=== PATIENT | female | born 1965 | race Caucasian/White ===

== ENCOUNTER 2017-12-21 18:18 | Emergency (ER) | payer OTHER ==
[~2017-12-21] VITALS: Ht 157.5 cm; Wt 99.8 kg
[2017-12-21 18:22] VITALS: BP 148/95
[2017-12-21] MEDS ORDERED: REMICADE 1100 MG/VIA IM (18:25)
[2017-12-21] MEDS ORDERED: AMBIEN 5 MG TABL5 M1 PO (18:26)
[2017-12-21] MEDS ORDERED: PROTONIX 20 MG20 M1 PO (18:26)
[2017-12-21] MEDS ORDERED: IBUPROFEN 600600 M1 PO (18:26)
[2017-12-21] MEDS ORDERED: ZESTRIL20 MG PO (18:26)
[2017-12-21] MEDS ORDERED: DOXYCYCLINE 10100 M1 PO (18:43)
[2017-12-21] MEDS ORDERED: KEFLEX500 M1 PO (18:44)
[2017-12-21] MEDS ORDERED: ACETAMINOPHEN-1 EAC1 PO (18:48)
== END 2017-12-21 19:00 | disposition home or self-care (01) ==
LOC: M.ERS 18:18
DX: L03.317 Cellulitis of buttock (principal); K50.90 Crohn's disease, unspecified, without complications; Z88.2 Allergy status to sulfonamides

== ENCOUNTER → 2019-03-07 | Outpatient (CLI) | payer OTHER ==
[~2019-03-07] MED LIST: ACETAMINOPHEN-1 EAC1 PO; AMBIEN 10 MG TA10 MG PO; AMITRIPTYLINE H10 M3 PO; BUTRANS1 EACH TRANSDERM; DOXYCYCLINE 10100 M1 PO; IBUPROFEN 600600 M1 PO; KEFLEX500 M1 PO; LISINOPRIL10 MG PO; MEDROLDOSEPACK PO; NEURONTIN 300300 M1 PO; NORCO 10-325 T1 EACH PO; PRILOSEC 20 MG20 MG PO; REMICADE 1100 MG/VIA IM
--- NOTE | ~2019-03-07 | PAINCON ---
[address] [address] PAIN MANAGEMENT CONSULTATION Name: KIKI DUNAWAY Room: [facility] TONIE Baugh#: [id number] Admission: 03/07/19 Attend Phys: Dayna Naidu MD Discharge: Date of : 65 Report #: [id number] THIS REPORT FOR: //name// CC: Donn Naidu DATE OF SERVICE: 03/07/2019 PRIMARY CARE PHYSICIAN: Donn Beckett MD CHIEF COMPLAINT: Left knee pain, left hip pain, left arm pain and history of fibromyalgia. HISTORY: The patient is a 53-year-old female who has been seen in the pain clinic because of chronic pain. She was experiencing pain in her left knee. States that she has gone to physical therapy. She was given a Medrol Dosepak. She is not sure how much benefit she gleaned from that. She has tried amitriptyline. She felt that this medication caused her to have vivid dreams. She notes that she was having some GI discomfort as well. As you recall, she has a history of Crohn's disease. She has had bowel resection in the past. She feels that she had increased GI discomfort. She is not sure whether that was secondary to the Elavil or the gabapentin. She feels that the medications of Elavil and gabapentin together cause some nausea. She is not sure which one or whether it was a combination. She stopped taking them. Notes that her pain is worse with activity, walking, sitting and standing. She states that she has used opioid medications in the past. States that she was on hydrocodone 10/325 one and half tablets b.i.d. She has been diagnosed with arthritis in her left knee. She was also told that she has some arthritis in her back. She has returned to the pain clinic for review of her medications. ALLERGIES: SULFA. CURRENT MEDICATIONS: Remicade 100 mg, Ambien 5 mg at bedtime, lisinopril 20 mg, ibuprofen 600 mg q.i.d., and Protonix 20 mg. PAIN CLINIC/PQRS: 1. The patient states that she has had surgery on her left and right shoulder. The patient is not being treated for osteoarthritis. She is being treated for rheumatoid arthritis. 2. Height 5 feet 4 inches, weight 227 pounds, BMI is 39. 3. VITAL SIGNS: Blood pressure 149/100, heart rate 82, respiratory rate 16, room air saturation 95%, temperature 98. 4. Pain score 4/10. 5. Fall history: The patient fell in November after tripping over a dog. 6. Blood thinner. The patient is not on a blood thinning medication. 7. Hypertension. The patient [place] [address] PAIN MANAGEMENT CONSULTATION Name: KIKI DUNAWAY GINA [facility] [id number] Admission: 03/07/19 Attend Phys: Dayna Naidu MD Discharge: Date of : 65 Report #: [id number] 8. Risk assessment tool, low for opioid use. 9. Functional assessment tool, . 10. Recreational drug use. The patient denies. 11. Tobacco: The patient denies use of tobacco ____. 12. Alcohol: The patient denies frequent use of alcoholic beverages. PHYSICAL EXAMINATION: GENERAL: The patient is a well-developed, well-nourished, somewhat obese white female, appears her stated age. She is alert and oriented x 3. Her affect is appropriate. Speech is fluent. HEENT: Normocephalic, atraumatic. Extraocular eye muscles intact. Sclerae nonicteric. Mucous membranes are moist. The patient has some signs of alopecia in the anterior portion of her hairline. NECK: Without adenopathy or JVD. EXTREMITIES: The patient is able to lift her arms above her shoulders. Has had rotator cuff surgeries. Muscle strength is judged to be 5-/5 for the major muscle groups in the upper extremity. HEART: Regular rate. ABDOMEN: Nontender. Bowel sounds present. The patient without significant scoliosis, kyphosis or lordosis. Complains of pain and discomfort in the lower portion of her back. Complains of pain in the left knee. IMPRESSION: 1. History of left greater trochanteric bursa. 2. Left knee pain status post left knee injection. 3. Fibromyalgia. 4. Bowel resection secondary to Crohn's disease. 5. . 6. Right and left rotator cuff problems. 7. Chronic pain. RECOMMENDATIONS: We discussed treatment options with the patient. At this juncture, we will have her stop taking the amitriptyline. She felt that the amitriptyline caused problematic dreams. We have explained to the patient that we heard this concern from other patient in the past. We have discussed the use of gabapentin. The patient is not sure, but feels that that might be causing her some GI upset. We will have the patient take the gabapentin by itself without use of Elavil ____ whether or not this is the cause of her discomfort. States that she did take Lyrica in the past and this caused some GI problems in the past. The patient has undergone a left knee injection and feels that her pain is improved since the knee injection. We discussed the treatment course for fibromyalgia. We explained that the current treatment as most effective for fibromyalgia has been activity and use of antidepressants. We will consider the use of doxepin. We will see whether or not she has better results with the use [place] [address] PAIN MANAGEMENT CONSULTATION Name: KIKI DUNAWAY Room: [facility] TONIE Baugh#: [id number] Admission: 03/07/19 Attend Phys: Dayna Naidu MD Discharge: Date of : 65 Report #: [id number] dreams. We also explained to the patient that opioid medications are not a good medication for treatment of fibromyalgia. She states that she is having back pain, has arthritic pain in her knees as well as arthritic pain down into her lower back. She states that in the past, she has used hydrocodone 10 mg 1-1/2 tablets p.o. b.i.d. She did note some improvement with the Medrol Dosepak as well. We will try a Butrans patch and note its efficacy. The patient will follow up in the near future. We would like to thank you for letting us participate in her care. We hope she continues to improve. By: [id number]. Robert Naidu MD /PMT
== END ==
LOC: M.PC 05:33
DX: M25.562 Pain in left knee (principal); M25.552 Pain in left hip; M79.602 Pain in left arm; G89.29 Other chronic pain; I10 Essential (primary) hypertension; Z88.2 Allergy status to sulfonamides; Z79.899 Other long term (current) drug therapy

== ENCOUNTER → 2019-04-11 | Outpatient (CLI) | payer OTHER ==
[~2019-04-11] MED LIST changes: +DOXEPIN 10 MG C10 M1 PO; +TRAMADOL 50 MG50 MG PO
--- NOTE | ~2019-04-11 | PAINCON ---
[address] [address] PAIN MANAGEMENT CONSULTATION Name: KIKI DUNAWAY Room: [facility] TONIE Baugh#: [id number] Admission: 04/11/19 Attend Phys: Dayna Naidu MD Discharge: Date of : 65 Report #: [id number] THIS REPORT FOR: //name// CC: Donn Naidu DATE OF SERVICE: 04/11/2019 CHIEF COMPLAINT: Left knee, left hip, arm and neck pain. HISTORY: The patient is a 54-year-old female with a history of chronic pain. She also has a history of fibromyalgia. She has returned to the pain clinic for evaluation. She received a knee injection by Orthopedic physician. She notes that her knee feels much better. Still has pain in the low back area, left hip, arm and neck. Rates these pains as a 6/10. She was provided a script for Butrans patch. States that it was not covered by her insurance. She did try at the 5 mg level, did not notice a significant benefit. She has been using Motrin, uses p.r.n. She has been encouraged to use the least amount of nonsteroidal anti-inflammatory medications. She has a history of Crohn's disease. She has had bowel resection in the past. Notes that her pain increases with walking, sitting, standing and improves with use of her medication as well as rest. She is scheduled to undergo an MRI of her low back next week. ALLERGIES: SULFA. CURRENT MEDICATIONS: Remicade 100 mg, Ambien 5 mg at bedtime, lisinopril 20 mg, ibuprofen 600 mg q.i.d., Protonix 20 mg. PAIN CLINIC ASSESSMENT AND PQRS: 1. The patient states that she has had surgery on her left and right shoulder. She is not being treated for osteoarthritis. Does have some arthritic changes in her knee. She has not been treated for rheumatoid arthritis. 2. Height 5 feet 4 inches, weight 237 pounds, BMI is 40. 3. Vital Signs: Blood pressure 148/96, heart rate 81, respiratory rate 16, room air saturation 95%, temperature is 98.4. 4. Pain intensity 03/11. 5. Fall history. The patient has not fallen in the last 3 months. 6. Blood thinner. The patient is not on any blood thinning medication. 7. Hypertension. The patient is being treated for hypertension. 8. Risk assessment tool, low for opioid use. 9. Functional assessment tool, 44/70. 10. Recreational drugs. The patient denies use of recreational drugs. 11. Tobacco: The patient denies use of tobacco. 12. Alcohol: The patient denies frequent [place] [address] PAIN MANAGEMENT CONSULTATION Name: KIKI DUNAWAY GINA Room: [facility]#: [id number] Admission: 04/11/19 Attend Phys: Dayna Naidu MD Discharge: Date of : 65 Report #: [id number] PHYSICAL EXAMINATION: GENERAL: The patient is a well-developed, well-nourished, obese, white female. Appears her stated age. She is alert and oriented x 3. Her affect is appropriate. HEENT: Normocephalic, atraumatic. Extraocular eye muscles intact. Sclerae nonicteric. Mucous membranes are moist. Has some signs of alopecia in the anterior portion of her scalp, neck without adenopathy or JVD. EXTREMITIES: Upper extremity, the patient is able to lift her arms above her head, shoulders. Had rotator cuff surgeries. Muscle strength is judged to be 5-/5 for the major muscle groups in the upper extremity. HEART: Regular rate. ABDOMEN: Nontender. Bowel sounds present. MUSCULOSKELETAL: The patient is without significant scoliosis, kyphosis or lordosis. Complains of pain in the lower portion of her back. Also, has noted some improvement in her left knee pain after the injection by her Orthopedic doctor. IMPRESSION: 1. History of greater trochanteric bursitis. 2. Left knee pain, status post left knee injection with improvement. 3. Fibromyalgia. 4. Bowel resection secondary to Crohn's disease. 5. section. 6. Right and left rotator cuff problems. 7. Chronic pain. RECOMMENDATIONS: We discussed treatment options with the patient. At this juncture, she will stop her amitriptyline. The patient will try doxepin. Hopefully, she will find this medication is helpful and she will not have the same problems with bad dreams. She will start 10 mg at night as prescribed. She will also try tramadol 50 mg 1 p.o. every 4-6 hours p.r.n. We explained the hesitancy of opioids nursing home. They can in some people become problematic. The patient can develop an addiction as well as pain medicines over a period of time, may become less effective secondary to development of tolerance. The patient has fibromyalgia. Again, we have discussed the benefits of exercise and fibromyalgia. Discussed the benefits of antidepressant medications. The patient will follow up in the near future. We would like to thank you for letting us participate in her care. We hope she continues to improve. By: [id number]. Robert Naidu MD /[facility]
== END ==
LOC: M.PC 05:12
DX: G89.29 Other chronic pain (principal); M79.7 Fibromyalgia; I10 Essential (primary) hypertension; K50.90 Crohn's disease, unspecified, without complications; Z79.899 Other long term (current) drug therapy; Z88.2 Allergy status to sulfonamides; Z87.59 Personal history of other complications of pregnancy, childbirth and the puerperium

== ENCOUNTER → 2019-05-09 | Outpatient (CLI) | payer OTHER ==
[~2019-05-09] MED LIST changes: +HYDROCODON-ACE1 EAC5 PO
--- NOTE | ~2019-05-09 | PAINCON ---
[address] [address] PAIN MANAGEMENT CONSULTATION Name: EMELYNKIKIRaul FUENTES Room: [facility] TONIE Baugh#: [id number] Admission: 05/09/19 Attend Phys: Dayna Naidu MD Discharge: Date of : 65 Report #: [id number] THIS REPORT FOR: //name// CC: Donn Naidu DATE OF SERVICE: 05/09/2019 PRIMARY CARE PHYSICIAN: Donn Beckett MD CHIEF COMPLAINT: Left knee, hip, arm and neck pain. HISTORY: The patient is a 54-year-old female who has been evaluated in the pain clinic. She has a history of chronic pain. Part of the chronic pain involves fibromyalgia. She also has problems with her GI tract. She has Crohn's disease and is unable to take nonsteroidal anti-inflammatory medications. She was provided a Butrans patch. The Ensure would not covered and the $300 cost was above her ability to pay. She was provided tramadol. She tried the tramadol and took one tablet q. 4 hours. She did not find that helpful. Did take 2 tablets q. 4 hours and noted about a 2-3 hour period of improvement. She has also continued to take Tylenol Arthritis. Has used Motrin 800 mg p.r.n., her GI doctor has found upon this use given that she has Crohn's disease. Rates her pain as a 6-10 at this point. The patient was initially being seen by her primary physician who has since retired. Since 2017, the patient has been receiving hydrocodone on a regular basis with no complications. She notes that pain increases with walking, sitting, standing and with activities of daily living. She would like to resume use of the hydrocodone medication given that it has been the most successful in controlling her pain. ALLERGIES: SULFA. CURRENT MEDICATIONS: Remicade 100 mg, Ambien 5 mg at bedtime, lisinopril 20 mg, ibuprofen 600 mg q.i.d. p.r.n., Protonix 20 mg. PAIN CLINIC ASSESSMENT/PQRS: 1. The patient states that she has had surgery on her left as well as her right shoulder. She is not being treated for osteoarthritis. Does have some arthritic changes involving her knee. She has been treated for rheumatoid types of problems, but has not been able to follow up with the housekeeping/laundry supervisor. 2. Height 5 feet 4 inches, weight 234 pounds, BMI is 40.3. 3. VITAL SIGNS: Blood pressure 145/84, heart rate 83, respiratory rate 18, room air saturation 97%, temperature was 98.7. 4. Pain intensity 6/10. 5. Fall history: The patient has not fallen in the last 3 months. 6. Blood thinner. The patient is not on a blood thinning medication. 7. Hypertension. The patient is being [place] [address] PAIN MANAGEMENT CONSULTATION Name: KIKI DUNAWAYETTE [id number] Admission: 05/09/19 Attend Phys: Dayna Naidu MD Discharge: Date of : 65 Report #: [id number] 8. Risk assessment tool, low for opioid use. 9. Functional assessment tool: . 10. Recreational drugs. The patient denies use of recreational drugs. 11. Tobacco: The patient denies use of tobacco. 12. Alcohol: The patient denies frequent use of alcoholic beverages. PHYSICAL EXAMINATION: GENERAL: The patient is a well-developed, well-nourished white female. Slightly obese. She is alert and oriented x 3. Her affect is appropriate. Speech is fluent. HEENT: Normocephalic, atraumatic. Extraocular eye muscles intact. Sclerae nonicteric. Mucous membranes are moist. NECK: Without adenopathy. The patient has some early signs of alopecia in the anterior portion of her forehead. NECK: Without adenopathy or JVD. EXTREMITIES: Upper extremity, the patient is able to lift her hands and arms above her head. She has rotator cuff surgeries. Complains of some decreased strength because of the pain. Rates her pain as a 5/5 for the major muscle groups in the upper extremity. HEART: Regular rate. S1, S2. ABDOMEN: Nontender. Bowel sounds present. MUSCULOSKELETAL: The patient without significant scoliosis, kyphosis or lordosis. The patient complains of pain in the lower portion of her back across the beltline area. Has had some pain in her left knee. Has undergone injections by her orthopedic surgeon in the past. IMPRESSION: 1. History of greater trochanteric bursitis. 2. Left knee pain status post left knee injection with improvement. 3. Fibromyalgia. 4. Bowel resection secondary to Crohn's disease. 5. section. 6. Right and left rotator cuff problems. 7. Chronic pain treated with complex medical management using hydrocodone since 2017. RECOMMENDATIONS: We discussed treatment options with the patient. At this juncture, she feels that the medications have not been as helpful. She has tried the Butrans patch. It was too expensive. It was over $300. She has used the tramadol. She did not find this effective. Taking one p.o. q. 4 hours was not effective, but when she did take 2 pills, she did note some improvement, but for a brief amount of time generally about 2-3 hours of benefit. The patient has been using hydrocodone 10/325 one p.o. q.i.d. since 2016. She feels that this medication was the most effective. At this juncture, she cannot take nonsteroidals and has been requested not to take nonsteroidals by her GI doctor given that she has Crohn's disease. [place] [address] PAIN MANAGEMENT CONSULTATION Name: KIKI DUNAWAY GINA Room: [facility]#: [id number] Admission: 05/09/19 Attend Phys: Dayna Naidu MD Discharge: Date of : 65 Report #: [id number] hydrocodone. She will take 10 mg 1 p.o. t.i.d. The patient will take the medication as prescribed. She will get old records from her primary. We have explained to the patient that opioid medications are not good for pain control and the patient with fibromyalgia. We will have her try doxepin 10 mg 1 p.o. at bedtime. Hopefully, this will help with the pain, as well as help with some of the pains associated with fibromyalgia. The patient is aware that opioid medications can be problematic one. Some patients can become addicted to them. We have also discussed the problems with opioids and that tolerance may develop. The patient has been given a script for hydrocodone 10/325 one p.o. t.i.d. as well as doxepin 10 mg 1 p.o. at bedtime. She did try Elavil to help with the pain, but noted vivid and disconcerting dreams. By: [id number]. Robert Naidu MD /PMT
== END ==
LOC: M.PC 05:14
DX: M70.60 Trochanteric bursitis, unspecified hip (principal); M25.562 Pain in left knee; G89.29 Other chronic pain; M54.2 Cervicalgia; M79.7 Fibromyalgia; K50.90 Crohn's disease, unspecified, without complications; Z88.2 Allergy status to sulfonamides; Z79.899 Other long term (current) drug therapy

== ENCOUNTER → 2019-06-06 | Outpatient (CLI) | payer OTHER ==
--- NOTE | 2019-06-10 11:25 | PAINCON ---
[address] [address] PAIN MANAGEMENT CONSULTATION Name: KKII DUNAWAY Room: [facility] TONIE Baugh#: [id number] Admission: 06/06/19 Attend Phys: Dayna Naidu MD Discharge: Date of : 65 Report #: [id number] THIS REPORT FOR: //name// CC: Donn Naidu DATE OF SERVICE: 06/06/2019 CHIEF COMPLAINT: Here for medication renewal. HISTORY: The patient is a 54-year-old female who has been seen in the pain clinic because of chronic pain involving her knees, hips, arms and neck. The patient has history of chronic pain and also has afflicted with fibromyalgia. Has problems with her GI tract. She has Crohn's disease and is unable to take nonsteroidal anti-inflammatory medications. She has tried a Butrans patch script. She was unable to get it because the insurance did not cover it and it costs $300. It is above her ability to pay. She has tried tramadol. She finds that this is somewhat helpful. She has used Motrin p.r.n. She has noted some increased GI problems and has decreased this medication. Doxepin was prescribed at the last visit. She has been unable to get this medication at this point. Hopefully, she will find it is helpful with her pain as well as facilitate sleep. Notes that her pain is worse with walking, sitting, standing and other activities. She was provided hydrocodone 10 mg 1 p.o. t.i.d. at the last visit. She finds that that has helped with the pain and enables her to become more productive with less pain and discomfort. She rates her pain as 3-4 at this point. She also has bilateral knee pain. She is scheduled to undergo injections into her knees with the hopes that this will help with the pain. ALLERGIES: SULFA. CURRENT MEDICATIONS: Remicade 100 mg, Ambien 5 mg at bedtime, lisinopril 20 mg, ibuprofen 600 mg q.i.d. p.r.n., Protonix 20 mg. PAIN CLINIC ASSESSMENT AND PQRS: 1. The patient states that she has had surgery on her left as well as her right shoulder. She is not being treated for osteoarthritis. She has some arthritic changes involving her knees. She is not being treated for rheumatoid by office correspondent. 2. Height 5 feet 4 inches, weight 241 pounds, BMI is 41.4. 3. Vital signs: Blood pressure 146/98, heart rate 82, respiratory rate 18, room air saturation 94%, temperature 98.5. 4. Pain intensity 4/5. 5. Fall history: The patient has not fallen since we saw her last. 6. Blood thinner. The patient is not on a blood [place] [address] PAIN MANAGEMENT CONSULTATION Name: KIKI DUNAWAY Room: [facility]#: [id number] Admission: 06/06/19 Attend Phys: Dayna Naidu MD Discharge: Date of : 65 Report #: [id number] 7. Hypertension. The patient is being treated for hypertension. 8. Opioids, low risk. 9. Functional assessment tool, . 10. Recreational drug use. The patient denies use of recreational drugs. 11. Tobacco: The patient denies use of tobacco. 12. Alcohol. The patient denies frequent use of alcoholic beverages. PHYSICAL EXAMINATION: GENERAL: The patient is a well-developed, well-nourished white female who is slightly obese. She is alert and oriented x 3. Her affect is appropriate. Speech is fluent. HEENT: Normocephalic, atraumatic. Extraocular eye muscles intact. Sclerae nonicteric. Mucous membranes are moist. The patient has some evidence of alopecia in the anterior portion of her forehead. NECK: Without adenopathy or JVD. EXTREMITIES: Upper extremity muscle strength judged to be 5-/5 for the major muscle groups in the upper extremity. The patient is able to lift her hands over her head. Has had rotator cuff surgeries. Complains of some decreased strength. Strength above the major muscle groups in the lower extremities judged to be 5/5. HEART: Regular rate. S1, S2. ABDOMEN: Nontender. Bowel sounds present. MUSCULOSKELETAL: The patient without significant scoliosis, kyphosis or lordosis. The patient complains of some pain in her lower back and across the lower belt area. Has pain in her knees. IMPRESSION: 1. History of greater trochanteric bursitis. 2. Left knee pain status post left knee injections with improvement. 3. Fibromyalgia. 4. Bowel resection secondary to Crohn's disease. 5. section. 6. Right and left rotator cuff problems. 7. Chronic pain treated with complex medical management using opioid medications. Has used this medication since 2017 without problem. RECOMMENDATIONS: We discussed treatment options with the patient. At this juncture, we will continue with her medications. A script for her medications have been provided. The patient will continue with hydrocodone 10/325 one p.o. t.i.d. The patient will also continue with doxepin 10 mg 1 p.o. at bedtime. She will use nonsteroidal anti-inflammatory medications sparingly. [address] [address] PAIN MANAGEMENT CONSULTATION Name: KIKI DUNAWAY Room: [facility]#: [id number] Admission: 06/06/19 Attend Phys: Dayna Naidu MD Discharge: Date of : 65 Report #: [id number] We would like to thank you for letting us participate in her care. We hope she continues to improve. <ELECTRONICALLY SIGNED> By: Dayna Naidu MD 06/10/19 1125 [id number]. Robert Naidu MD /[facility]
== END ==
LOC: M.PC 05:13
DX: M25.562 Pain in left knee (principal); M79.7 Fibromyalgia; K50.90 Crohn's disease, unspecified, without complications; M25.511 Pain in right shoulder; M25.512 Pain in left shoulder; Z79.891 Long term (current) use of opiate analgesic; Z98.890 Other specified postprocedural states; M70.60 Trochanteric bursitis, unspecified hip; Y93.89 Activity, other specified

== ENCOUNTER → 2019-07-04 | Outpatient (CLI) | payer OTHER ==
[~2019-07-04] MED LIST changes: +AMBIEN 5 MG TABL5 M1 PO
--- NOTE | 2019-07-24 09:09 | PAINCON ---
[address] [address] PAIN MANAGEMENT CONSULTATION Name: KIKI DUNAWAY Room: [facility] Lupis#: [id number] Admission: 07/04/19 Attend Phys: Dayna Naidu MD Discharge: Date of : 65 Report #: [id number] THIS REPORT FOR: //name// CC: Donn Naidu DATE OF SERVICE: 07/04/2019 PRIMARY CARE PHYSICIAN: Donn Beckett MD CHIEF COMPLAINT: Here for medication renewal. HISTORY: The patient is a 54-year-old female who has been followed in the pain clinic. As you may recall, she has a history of chronic pain involving her knees, hips, arms and neck. She does have Crohn's disease. She is unable to take nonsteroidal anti-inflammatory medications. She has tried Butrans patches. This was prohibitively expensive. She has used hydrocodone in the past and found it beneficial and would like to continue that medication. She was tried on amitriptyline to help with the pain. She felt that this caused significant problems with bad dreams. She was provided doxepin 10 mg. She noticed that the medication made her feel fuzzy. She also has used tramadol and found that beneficial. ALLERGIES: SULFA. CURRENT MEDICATIONS: Remicade 100 mg, Ambien 5 mg at bedtime, lisinopril 20 mg, ibuprofen 600 mg p.r.n., Protonix 20 mg. PAIN CLINIC ASSESSMENT/PQRS: 1. The patient has had surgery on her left as well as the right shoulder. She is not being treated for osteoarthritis. She has some arthritic changes involving her knees. She is not being treated for rheumatoid arthritis. 2. Height 5 feet 4 inches, weight 241 pounds, BMI is 41. 3. Vital signs: Blood pressure 144/79, heart rate 85, respiratory rate 16, room air saturation is 95%, temperature 97.9. 4. Pain intensity 12/09. 5. Fall history: The patient has not fallen in the last 3 months. 6. Blood thinner. The patient is not on a blood thinning medication. 7. Hypertension. The patient is being treated for hypertension. 8. Opioids, low risk. 9. Functional assessment tool, . 10. Recreational drug use. The patient denies. 11. Tobacco: The patient denies use of tobacco. 12. Alcohol. The patient denies frequent use of alcoholic beverages. PHYSICAL EXAMINATION: [place] [address] PAIN MANAGEMENT CONSULTATION Name: KIKI DUNAWAY Room: [facility]#: [id number] Admission: 07/04/19 Attend Phys: Dayna Naidu MD Discharge: Date of : 65 Report #: [id number] GENERAL: The patient is a well-developed, well-nourished white female. She is obese. She is alert and oriented x 3. Her affect is appropriate. Speech is fluent. HEENT: Normocephalic, atraumatic. Extraocular eye muscles intact. Sclerae nonicteric. Mucous membranes are moist. The patient has some evidence of alopecia in the anterior portion of her forehead. NECK: Without adenopathy or JVD. EXTREMITIES: Upper extremity muscle strength judged to be 5/5 for the major muscle groups in the upper extremity. The patient has some pain and discomfort in the rotator cuff areas. Decreased strength in these areas. Decreased range of motion. Overall, muscle strength judged to be 5-/5. HEART: Regular rate. S1, S2. ABDOMEN: Nontender. Bowel sounds present. MUSCULOSKELETAL: Without significant scoliosis, kyphosis or lordosis. The patient has pain in the lower portion of her back and in the low back area. Has pain in her knees. IMPRESSION: 1. History of greater trochanteric bursitis. 2. Left knee pain status post left knee injections with improvement in the past. 3. Fibromyalgia. 4. Bowel resection secondary to Crohn's disease. 5. section. 6. Right and left rotator cuff problems. 7. Pain secondary to complex situation. We will continue to use the opioid medications at this juncture. The patient has used opioid medications since 2017 without problem. RECOMMENDATIONS: We discussed treatment options with the patient. Risks and benefits of opioid therapy were again reviewed. They include the possibility of less effectiveness secondary to development of tolerance. The patient is also aware that patients can develop addiction. The patient has not shown any addictive behavior. She is aware that there is a limitation as to how much pain relief these medications can provide. She feels that they have been beneficial in the past. They enable her to engage in life of less pain and chronic discomfort. Notes that her pain is worse with the walking and standing. Does use heat and massage. A script for her medications of tramadol 50 mg 1 p.o. t.i.d. and hydrocodone 10/325 one p.o. t.i.d. [place] [address] PAIN MANAGEMENT CONSULTATION Name: KIKI DUNAWAY Room: [facility]#: [id number] Admission: 07/04/19 Attend Phys: Dayna Naidu MD Discharge: Date of : 65 Report #: [id number] We would like to thank you for letting us participate in her care. We hope she continues to improve. <ELECTRONICALLY SIGNED> By: Dayna Naidu MD 07/24/19 0909 [id number] Naidu MD /[facility]
== END ==
LOC: M.PC 05:31
DX: G89.29 Other chronic pain (principal); M25.562 Pain in left knee; M79.7 Fibromyalgia; M70.60 Trochanteric bursitis, unspecified hip; Y93.89 Activity, other specified; Z98.890 Other specified postprocedural states; Z79.891 Long term (current) use of opiate analgesic; M75.102 Unspecified rotator cuff tear or rupture of left shoulder, not specified as traumatic; M75.101 Unspecified rotator cuff tear or rupture of right shoulder, not specified as traumatic; K50.90 Crohn's disease, unspecified, without complications

== ENCOUNTER → 2019-08-01 | Outpatient (CLI) | payer OTHER ==
[~2019-08-01] MED LIST changes: -AMBIEN 5 MG TABL5 M1 PO
--- NOTE | 2019-08-12 13:25 | PAINCON ---
[address] [address] PAIN MANAGEMENT CONSULTATION Name: KIKI DUNAWAY Room: [facility]USTY Lupis#: [id number] Admission: 08/01/19 Attend Phys: Dayna Naidu MD Discharge: Date of : 65 Report #: [id number] THIS REPORT FOR: //name// CC: Donn Naidu DATE OF SERVICE: 08/01/2019 CHIEF COMPLAINT: Here for medication. HISTORY: The patient is a 54-year-old female. She suffers from chronic pain. She has Crohn's disease. She is unable to take nonsteroidal anti-inflammatory medication because of her Crohn's disease. She has tried a Butrans patch. Because of the [place], she was unable to afford it. Hydrocodone has been helpful in the past. She finds that this medication is working reasonably well. She feels that the medication has been working reasonably well. She has returned today and would like to have her medications renewed. ALLERGIES: SULFA. CURRENT MEDICATIONS: Remicade 100 mg, Ambien 5 mg at bedtime, lisinopril 20 mg, ibuprofen 600 mg p.r.n., Protonix 20 mg. PAIN CLINIC ASSESSMENT AND PQRS: 1. The patient has had surgery on her left as well as her right shoulder. She is not being treated for osteoarthritis. She has some arthritic changes involving her knees. She is being treated for rheumatoid arthritis. 2. Height 5 feet 4 inches, weight 241 pounds, BMI is 41, temperature 97.8. 3. Pain intensity 4/10. 4. Fall history: The patient has not fallen in the last 3 months. 5. Blood thinner: The patient is not on a blood thinning medication. 6. Hypertension: The patient is being treated for hypertension. 7. Opioids: Low risk. 8. Functional assessment tool: reviewed. 10. Recreational drugs: The patient denies use of recreational drugs. 11. Tobacco: The patient denies use of tobacco. 12. Alcohol: The patient denies frequent use of alcoholic beverages. PHYSICAL EXAMINATION: GENERAL: The patient is a well-developed, well-nourished, obese white female. She is alert and oriented x 3. Her affect is appropriate. Speech is fluent. HEENT: Normocephalic, atraumatic. Extraocular eye muscles intact. Sclerae nonicteric. Mucous membranes are moist. NECK: Without adenopathy or JVD. The patient does have some evidence of alopecia in [place] [address] PAIN MANAGEMENT CONSULTATION Name: KIKI DUNAWAY GINA Room: [facility]#: [id number] Admission: 08/01/19 Attend Phys: Dayna Naidu MD Discharge: Date of : 65 Report #: [id number] NECK: Without adenopathy or JVD. EXTREMITIES: Upper extremity muscle strength judged to be 5/5 for the major muscle groups of the upper extremity. The patient has some pain and discomfort in the rotator cuff areas. Decreased muscle strength in these areas. Muscle strength 5-/5 for the major muscle groups. HEART: Regular rate. S1, S2. ABDOMEN: Nontender. Bowel sounds present. MUSCULOSKELETAL: Without significant scoliosis, kyphosis or lordosis. The patient has pain in the lower portion of her back and pain in the knees. IMPRESSION: 1. History of greater trochanteric bursitis. 2. Left knee pain status post left knee injections with improvement in the past. 3. Fibromyalgia. 4. Bowel resection secondary to Crohn's disease. 5. section. 6. Right and left rotator cuff problems. 7. Pain secondary to complex medications using opioids to help control the pain secondary to the patient's inability to take nonsteroidals. RECOMMENDATIONS: We discussed treatment options with the patient. I explained to the patient that opioid medications can be problematic for some patients. She feels the medications are helpful. She has taken the medication as prescribed. She is not exhibiting any addictive behavior. Limitations of these medications again have been reviewed. The patient is keeping her medications in a guarded area. She would like to proceed with renewal of her medications. She will also continue with heat and massage. A script for the tramadol medication 50 mg 1 p.o. t.i.d. and hydrocodone 10/325 has been renewed. She will call us if she has any concerns. We would like to thank you for letting us participate in her care. We hope she continues to improve. <ELECTRONICALLY SIGNED> By: Dayna Naidu MD 08/12/19 1325 [id number]. Robert Naidu MD /mykel
== END ==
LOC: M.PC 04:59
DX: M25.562 Pain in left knee (principal); M79.7 Fibromyalgia; M25.511 Pain in right shoulder; M25.512 Pain in left shoulder; K50.90 Crohn's disease, unspecified, without complications; M70.60 Trochanteric bursitis, unspecified hip; Z98.890 Other specified postprocedural states; Z79.891 Long term (current) use of opiate analgesic

== ENCOUNTER → 2019-08-22 | Outpatient (CLI) | payer OTHER ==
[~2019-08-22] MED LIST changes: +AMBIEN 5 MG TABL5 M1 PO
--- NOTE | 2019-09-03 09:09 | PAINCON ---
[address] [address] PAIN MANAGEMENT CONSULTATION Name: KIKI DUNAWAY Room: [facility] Hany.#: [id number] Admission: 08/22/19 Attend Phys: Dayna Naidu MD Discharge: Date of : 65 Report #: [id number] THIS REPORT FOR: //name// CC: Donn Naidu DATE OF SERVICE: 08/22/2019 CHIEF COMPLAINT: Chronic pain. History of Crohn's disease. HISTORY OF PRESENT ILLNESS: The patient is a 54-year-old female who has been followed in the pain clinic because of chronic pain associated with her knees as well as low back. She has noticed an increase in her knee pain. She is scheduled to have an injection in a week. She has returned today for renewal of her medications. Rates her pain as a 5/10. Sometimes wakes up with significant pain in the morning. Feels that the tramadol and [place] were helpful. Notes that walking, sitting, standing can be worse for her pain. Feels her medications, heat, massage and rest are beneficial. She has returned today with the hopes of renewing her medications. ALLERGIES: SULFA. CURRENT MEDICATIONS: Remicade 100 mg, Ambien 5 mg at bedtime, lisinopril 20 mg, ibuprofen 600 mg p.r.n., Protonix 20 mg. PAIN CLINIC ASSESSMENT AND PQRS: 1. The patient has had surgery on her left as well as her right shoulder. She is not being treated for osteoarthritis. Does have some arthritic changes in her knees. She is being treated for rheumatoid arthritis. 2. Height 5 feet 4 inches, weight 236 pounds, BMI is 40.6. 3. Vital signs: Blood pressure 155/71, heart rate 78, respiratory rate 18, room air saturation 94%, temperature 98.1. 4. Pain intensity 5/10. 5. Fall history: The patient has not fallen in the last 3 months. 6. Blood thinner. The patient is not on a blood thinning medication. 7. Hypertension. The patient is being treated for hypertension. 8. Opioids, low risk. 9. Functional assessment tool reviewed. 10. Recreational drug use: The patient denies. 11. Tobacco: The patient denies. 12. Alcohol: The patient denies frequent use of alcoholic beverages. PHYSICAL EXAMINATION: GENERAL: The patient is a well-developed, well-nourished, somewhat obese white female, appeared to be of her stated age. She is alert and oriented x 3. [place] [address] PAIN MANAGEMENT CONSULTATION Name: EMELYNKIKIRaul FUENTES Room: [facility]#: [id number] Admission: 08/22/19 Attend Phys: Dayna Naidu MD Discharge: Date of : 65 Report #: [id number] affect is appropriate. Speech is fluent. HEENT: Normocephalic, atraumatic. Extraocular eye muscles intact. Sclerae nonicteric. Mucous membranes are moist. The patient with some evidence of alopecia in her forehead area. NECK: Without adenopathy or JVD. EXTREMITIES: Upper extremity muscle strength judged to be 5-/5 for the major muscle groups in the upper extremity. The patient has some pain and discomfort in the rotator cuff areas. Has decreased muscle strength in the lower extremities, 5-/5 for the major muscle groups. HEART: Regular rate. S1, S2. ABDOMEN: Nontender. Bowel sounds present. MUSCULOSKELETAL: The patient without significant scoliosis, kyphosis or lordosis. The patient does have some pain in the lower portion of her back as well as pain down in her knees. IMPRESSION: 1. History of greater trochanter bursitis. 2. Left knee pain status post left knee injection with improvement in the past. 3. Fibromyalgia. 4. Bowel resection secondary to Crohn's disease. 5. section. 6. Right and left rotator cuff problems. 7. Pain secondary to complex medical pain treated with complex medications using opioids to help control the pain. The patient has difficulty with nonsteroidal anti-inflammatory medications because of her Crohn's disease. The patient will continue with her medications. RECOMMENDATIONS: A script for her medications of tramadol 50 mg one p.o. q. 4-6 hours p.r.n. and [place] 10/325 has been rewritten. The patient will call us if she has any concerns. We would like to thank you for letting us participate in her care. A script for her medications has all been rewritten. <ELECTRONICALLY SIGNED> By: Dayna Naidu MD 09/03/19 0909 [id number] 2206N. Robert Naidu MD /mykel
== END ==
LOC: M.PC 05:08
DX: Z76.0 Encounter for issue of repeat prescription (principal); I10 Essential (primary) hypertension; M70.62 Trochanteric bursitis, left hip; Z79.899 Other long term (current) drug therapy; Z88.2 Allergy status to sulfonamides; Z79.891 Long term (current) use of opiate analgesic

== ENCOUNTER → 2019-09-23 | Outpatient (CLI) | payer OTHER | LOC: M.MRI 15:50 | DX: S82.832A Other fracture of upper and lower end of left fibula, initial encounter for closed fracture (principal); S83.412A Sprain of medial collateral ligament of left knee, initial encounter; X58.XXXA Exposure to other specified factors, initial encounter; Y93.89 Activity, other specified; Y92.89 Other specified places as the place of occurrence of the external cause; Y99.8 Other external cause status ==

== ENCOUNTER → 2019-10-17 | Outpatient (CLI) | payer OTHER ==
--- NOTE | ~2019-10-17 | PAINCON ---
[address] [address] PAIN MANAGEMENT CONSULTATION Name: KIKI DUNAWAY Room: [facility]#: [id number] Admission: 10/17/19 Attend Phys: Dayna Naidu MD Discharge: Date of : 65 Report #: [id number] THIS REPORT FOR: //name// CC: MD Dayna Urena DATE OF SERVICE: 10/17/2019 CHIEF COMPLAINT: Chronic pain with Crohn's disease. HISTORY OF PRESENT ILLNESS: The patient is a 54-year-old female who has been followed in the pain clinic. As you may recall, she suffers from chronic pain associated with her back as well as knee pain. She also has bilateral axwu-kq-bneb pain involving her knees. She rates her pain today as a 5/10. She did slip and fell down some steps. She fractured the fibular head. At this juncture, nose surgery is needed. She has noted some increased pain. She is being followed by an orthopedic surgeon. Notes that her pain is worse in the cold weather. The weather has changed. Notes that activities such as walking, sitting and standing can exacerbate her pain. She has used medications, heat, massage and warmth and noticed that these can be help in decreasing the discomfort. Rates her pain as 50-60% improved with her current medical regimen. ALLERGIES: SULFA. CURRENT MEDICATIONS: Remicade 100 mg, Ambien 5 mg at bedtime, lisinopril 20 mg, ibuprofen 600 mg p.r.n., Protonix 20 mg, tramadol 50 mg, [place] 10/325 one p.o. q.4-6 hours for pain. PAIN CLINIC ASSESSMENT AND PQRS: 1. The patient has had surgery on her left shoulder and right shoulder. She is not being treated for osteoarthritis. She does have some arthritic changes in her knees. She is being treated for rheumatoid arthritis. 2. Height 5 feet 4 inches, weight 236 pounds, BMI is 40.5. 3. Vital signs: Blood pressure 143/91, heart rate 69, respiratory rate 16, room air saturation 97%, temperature 97.8. 4. Pain intensity: 5/10. 5. Fall history: The patient has fallen and fractured the head of her fibula. 6. Blood thinner: The patient is not on a blood thinning medication. 7. Hypertension: The patient is being treated for hypertension. 8. Opioids, low risk. 9. Functional assessment tool. This has been low for use of opioids. 10. Recreational drug use: The patient denies. 11. Tobacco: The patient denies. 12. Alcohol: The patient denies use of alcoholic [place] [address] PAIN MANAGEMENT CONSULTATION Name: EMELYNKIKI Raul Room: [facility]#: [id number] Admission: 10/17/19 Attend Phys: Dayna Naidu MD Discharge: Date of : 65 Report #: [id number] PHYSICAL EXAMINATION: GENERAL: The patient is a well-developed, well-nourished white female. She is obese. She appears her stated age. She is alert and oriented x 3. Her affect is appropriate. Speech is fluent. HEENT: Normocephalic, atraumatic. Extraocular eye muscles intact. Sclerae nonicteric. Mucous membranes are moist. The patient with some evidence of alopecia in her forehead area. NECK: Without adenopathy or JVD. EXTREMITIES: Upper extremity muscle strength judged to be 5/5 for the major muscle groups in the upper extremity. The patient has some pain and discomfort in the area of the rotator cuff. Note some decreased muscle strength. Lower extremity muscle strength judged to be 5/5 for the major muscle groups in the lower extremity. HEART: Regular rate. S1, S2. ABDOMEN: Nontender. Bowel sounds present. MUSCULOSKELETAL: Without significant scoliosis, kyphosis or lordosis. The patient does have some pain in the lower portion of her back as well as down into her knees. IMPRESSION: 1. History of greater trochanter bursitis. 2. Left knee pain status post left knee injection with improvement in the past. 3. Fibromyalgia. 4. Bowel resection secondary to Crohn's disease. 5. section. 6. Right and left rotator cuff problems. 7. Pain secondary to complex medical regimen treated pain with use of complex medical management to help control the pain using opioids. The patient is unable to take nonsteroidal anti-inflammatory medications because of her Crohn's. RECOMMENDATIONS: We discussed treatment options with the patient. At this juncture, we will continue with use of tramadol one p.o. q.4-6 hours p.r.n. The patient will also continue with Narcan 10 mg one p.o. q.4-6 hours p.r.n. The patient recently fell. She is having increased pain in her leg because of fracture of the fibula head. She is scheduled to follow up with a surgeon in the near future. Hopefully, this heals well and there is no problem. Hopefully, her medications continue to be ample to cover the pain and discomfort she is experiencing. She finds that her pain is about 50-60% improved with use of her medications. She is aware that opioid medications can become less effective as time goes on because of development of tolerance. She will also call the pain clinic should she notice any complications. A script for her medication renewal has been provided. She will continue with hydrocodone 10/325 one p.o. t.i.d. A script for Ambien 5 mg to help with sleep at night has been provided. She will call us if she has any [place] [address] PAIN MANAGEMENT CONSULTATION Name: KIKI DUNAWAY Raul Room: [facility]#: [id number] Admission: 10/17/19 Attend Phys: Dayna Naidu MD Discharge: Date of : 65 Report #: [id number] We would like to thank you for letting us participate in her care. We hope she continues to improve. By: [id number]. Robert Naidu MD /mykel
== END ==
LOC: M.PC 09:30
DX: M25.562 Pain in left knee (principal); M79.7 Fibromyalgia; M70.60 Trochanteric bursitis, unspecified hip

== ENCOUNTER → 2019-11-14 | Outpatient (CLI) | payer OTHER ==
--- NOTE | 2019-11-27 09:12 | PAINCON ---
[address] [address] PAIN MANAGEMENT CONSULTATION Name: KIKI DUNAWAY Raul Room: [facility]#: [id number] Admission: 11/14/19 Attend Phys: Dayna Naidu MD Discharge: Date of : 65 Report #: [id number] THIS REPORT FOR: //name// cc: ISIAH BOUCHER MD, CHADWICK MD ~ THIS REPORT FOR: //name// CC: ISIAH Naidu DATE OF SERVICE: 11/14/2019 CHIEF COMPLAINT: Chronic pain and Crohn's disease. HISTORY OF PRESENT ILLNESS: The patient is a 54-year-old female who has been followed in the pain clinic. As you may recall, she suffers from chronic pain associated with her back and knee pain. She also has ueoo-kg-hbbs involvement in her knees. She slipped and fell. She fractured her fibular head. She rates her pain as 4/10 at this point. States that her fibular head is healing slowly. She has noticed some increased pain in her left leg. She did undergo an x-ray last week. Pain is worse at night. Rates her pain overall as a 4/10. Walking, sitting, standing and other activities can exacerbate the pain and discomfort. She would like to continue with her medications. ALLERGIES: SULFA. CURRENT MEDICATIONS: Remicade 100 mg, Ambien 5 mg at bedtime, lisinopril 20 mg, ibuprofen 600 mg, Protonix 20 mg, tramadol 50 mg and [place] 10/325 one p.o. q. 4-6 hours p.r.n. PAIN CLINIC ASSESSMENT/PQRS: 1. The patient has had surgery on her left shoulder and right shoulder. She is not being treated for osteoarthritis. She has a healing fibular head, which was fractured. She does have some arthritic changes in her knees. She is being treated for rheumatoid arthritis. 2. Height 5 feet 4 inches, weight 236 pounds, BMI is 40. 3. Vital Signs: Blood pressure 154/98, heart rate 77, respiratory rate 16, room air saturation 93% and temperature 98.1. 4. Pain intensity 10. 5. Fall history: The patient did fall and fractured the fibular head. 6. Blood thinner. The patient is not on a blood-thinning medication. 7. Hypertension. The patient is being treated for hypertension. 8. Opioids, low risk. 9. Functional assessment tool has been reviewed. 10. Recreational drug use: [place] [address] PAIN MANAGEMENT CONSULTATION Name: KIKI DUNAWAY Room: [facility]#: [id number] Admission: 11/14/19 Attend Phys: Dayna Naidu MD Discharge: Date of : 65 Report #: [id number] 11. Tobacco: The patient denies. 12. Alcohol. The patient denies frequent use of alcoholic beverages. PHYSICAL EXAMINATION: GENERAL: The patient is a well-developed, well-nourished white female. She is obese. Appears her stated age. She is alert and oriented x 3. Her affect is appropriate. Speech is fluent. HEENT: Normocephalic, atraumatic. Extraocular eye muscles intact. Sclerae nonicteric. Mucous membranes are moist. The patient has alopecia in the forehead area. NECK: Without adenopathy or JVD. EXTREMITIES: Upper extremity muscle strength is judged to be 5/5 for the major muscle groups in the upper extremity. The patient does have some discomfort in the area of the rotator cuff. Decreased muscle strength in this area. Lower extremity muscle is strength judged to be 5/5 for the major muscle groups in the lower extremity. HEART: Regular rate. S1, S2. ABDOMEN: Nontender. Bowel sounds present. MUSCULOSKELETAL: The patient without significant scoliosis, kyphosis or lordosis. The patient has some pain in her knees, which is wiuc-hn-hftx. Has pain in the left leg. IMPRESSION: 1. History of greater trochanteric bursitis. 2. Left knee pain status post left knee injection and improvement in the past. 3. Fibromyalgia. 4. Fracture of the fibular head, which is healing. 5. History of bowel resection secondary to Crohn's disease. 6. section. 7. Right and left rotator cuff problems. 8. Pain secondary to chronic medical management of her pain with opioids. The patient is unable to take nonsteroidal anti-inflammatory medications because of her Crohn's. RECOMMENDATIONS: We discussed treatment options with the patient. At this juncture, we will continue with her medications. Risks and benefits of opioid use were discussed. The patient is aware that some patients have become addicted to opioids. She feels her medications are helpful. Enable her to engage in activities, she would not be able to without their use. A script for her medications of tramadol 50 mg q.4 hours has been written. The patient will also continue with Ambien 5 mg at bedtime. A script for her hydrocodone 10/325 one p.o. t.i.d. has been written. We would like to thank you for letting us participate in her care. The patient feels that her pain medications continued to be helpful. She gains greater than 50% improvement with their use. Keeps her medications [place] [address] PAIN MANAGEMENT CONSULTATION Name: EMELYNKIKI A Room: [facility]#: [id number] Admission: 11/14/19 Attend Phys: Dayna Naidu MD Discharge: Date of : 65 Report #: [id number] We would like to thank you for letting us participate in her care. We hope she continues to improve. <ELECTRONICALLY SIGNED> By: Dayna Naidu MD 11/27/19 0912 [id number]. Robert Naidu MD /nt
== END ==
LOC: M.PC 02:13
DX: S82.499A Other fracture of shaft of unspecified fibula, initial encounter for closed fracture (principal); G89.29 Other chronic pain; M25.562 Pain in left knee; M79.7 Fibromyalgia; Z88.2 Allergy status to sulfonamides; Z79.899 Other long term (current) drug therapy; X58.XXXA Exposure to other specified factors, initial encounter; Y93.89 Activity, other specified; Y92.89 Other specified places as the place of occurrence of the external cause; Y99.8 Other external cause status

== ENCOUNTER → 2019-12-12 | Outpatient (CLI) | payer OTHER ==
--- NOTE | ~2019-12-12 | PAINCON ---
[address] [address] PAIN MANAGEMENT CONSULTATION Name: KIKI DUNAWAY Room: [facility]#: [id number] Admission: 12/12/19 Attend Phys: Dayna Naidu MD Discharge: Date of : 65 Report #: [id number] THIS REPORT FOR: //name// cc: JAME BOUCHER MD, CHADWICK MD ~ THIS REPORT FOR: //name// CC: JAME Naidu DATE OF SERVICE: 12/12/2019 The patient was seen on 12/12/2019 by Robert Naidu MD PRIMARY PHYSICIAN: Jame Boucher MD CHIEF COMPLAINT: Medications are working reasonably well and I would like to continue. HISTORY: The patient is a 54-year-old female who has been followed in the Pain Clinic because of chronic pain associated with her back and myzb-we-auwy involvement in her knee. She fractured fibular head. That seems to be healing reasonably well. She rates her pain today as a 3/10. Notes pain down in the right leg and some pain in the joints. She has had some fever and chills after watching over a grandchild. She feels that she had contacted and gotten over the flu. It lasted about 2-1/2 to 3 weeks. Notes that activities such as walking, sitting and standing can worsen her pain. She has used her medications to help with the pain. Heat, rest and massage have been beneficial as well. She rates her pain as a 3/10. ALLERGIES: SULFA. CURRENT MEDICATIONS: Remicade 100 mg, Ambien 5 mg at bedtime, lisinopril 20 mg, ibuprofen 600 mg, Protonix 20 mg, tramadol 50 mg, [place] 10/325 one p.o. q.4-6 hours. PAIN CLINIC ASSESSMENT AND PQRS: 1. The patient has had surgery on her left shoulder and the right shoulder. She is not being treated for osteoarthritis. The patient is healing from a fibular head fracture. She is being treated for rheumatoid arthritis. 2. Height 5 feet 4 inches, weight 232 pounds, BMI is 39. 3. Vital signs: Blood pressure 156/103, heart rate 79, respiratory rate 16, room air saturation 94%, temperature 98.1. 4. Pain score 3/10. 5. Fall history: The patient has not fallen [place] [address] PAIN MANAGEMENT CONSULTATION Name: KIKI DUNAWAY Room: [facility]#: [id number] Admission: 12/12/19 Attend Phys: Dayna Naidu MD Discharge: Date of : 65 Report #: [id number] 6. Blood thinner. The patient is not on a blood thinning medication. 7. Hypertension. The patient is being treated for hypertension. 8. Opioid risks low. 9. Functional assessment tool has been reviewed. 10. Recreational drug use: The patient denies. 11. Tobacco: The patient denies. 12. Alcohol. The patient denies frequent use of alcoholic beverages. PHYSICAL EXAMINATION: GENERAL: The patient is a well-developed, well-nourished white female. Appears her stated age. She is somewhat obese. She is alert and oriented x 3. Her affect is appropriate. Speech is fluent. HEENT: Normocephalic, atraumatic. Extraocular eye muscles intact. Sclerae nonicteric. The patient is showing signs of alopecia on the forehead area. NECK: Without adenopathy or JVD. EXTREMITIES: Upper extremity muscle strength is judged to be 5/5 for the major muscle groups in the upper extremity. The patient does have some discomfort in the area of her rotator cuff. Has some decreased range of motion in this area. Lower extremity muscle strength judged to be 5-/5 for the major muscle groups in the lower extremity. HEART: Regular rate. ABDOMEN: Nontender. Bowel sounds present. MUSCULOSKELETAL: The patient without significant scoliosis, kyphosis or lordosis. The patient has some pain in her knees secondary to yurf-ew-ksss discomfort. This is the left knee that is most problematic. IMPRESSION: 1. History of greater trochanteric bursitis. 2. Left knee pain status post left knee injection with some improvement in the past. 3. Fibromyalgia. 4. Fracture of the fibular head, healing. 5. History of bowel resection secondary to Crohn's disease. 6. Right and left rotator cuff pain. 7. Pain secondary to the above items with a complex medical regimen using opioids. The patient is unable to take nonsteroidal anti-inflammatory medications given her Crohn's disease. RECOMMENDATIONS: We discussed treatment options with the patient. Risks and benefits of opioid use were discussed. The patient is unable to take nonsteroidal anti-inflammatory medications because of her bowel problems. She is aware that opioid medications can be helpful. They can become less effective as time goes on secondary to development of tolerance. We explained to the patient that the medications are provided with the hopes that they will be able to help temporize her pain. She does have wujm-bq-artb pain in her knee. She is aware that some patients may become addicted to these medications. She has [facility] [address] [place] [address] PAIN MANAGEMENT CONSULTATION Name: KIKI DUNAWAY Room: [facility]#: [id number] Admission: 12/12/19 Attend Phys: Dayna Naidu MD Discharge: Date of : 65 Report #: [id number] not shown any signs of addiction. She would like to continue with her medications given that they are providing benefit and enabling her to engage in activities of daily living with less discomfort. A script for her medications has been rewritten. She will continue with tramadol 50 mg one p.o. q.4-6 hours and hydrocodone 10/325 one p.o. q.4-6 hours, total of 90 tablets have been provided. She will also continue with Ambien 5 mg at bedtime. A script for tramadol 90 tablets has been provided. We would like to thank you for letting us participate in her care. We hope she continues to improve. By: [id number]. Robert Naidu MD /nt
== END ==
LOC: M.PC 06:00
DX: S82.4 Fracture of shaft of fibula (principal); X58.XXXD Exposure to other specified factors, subsequent encounter; M25.562 Pain in left knee

== ENCOUNTER → 2020-01-09 | Outpatient (CLI) | payer OTHER ==
--- NOTE | ~2020-01-09 | PAINCON ---
[address] [address] PAIN MANAGEMENT CONSULTATION Name: EMELYNKIKI Raul Room: [facility]#: [id number] Admission: 01/09/20 Attend Phys: Dayna Naidu MD Discharge: Date of : 65 Report #: [id number] THIS REPORT FOR: //name// cc: ISIAH BOUCHER MD, CHADWICK MD ~ THIS REPORT FOR: //name// CC: ISIAH Naidu DATE OF SERVICE: 01/09/2020 CHIEF COMPLAINT: Bilateral knee pain and low back pain. HISTORY: The patient is a 54-year-old female who has been followed in the Pain Clinic because of chronic pain. She suffers from ohum-qj-shkc pain in her knee. She is experiencing some pain in her low back area as well. She has had an injection in the past. She feels that her medications continue to be helpful. She feels that she is working more. Has worked in her backyard. She did break her patella some time ago. She has noted some increased discomfort in that area as well. Rates her pain overall as a 4/10. Rates her pain as about 50% improved with her current medications. Factors that worsen her pain are walking, sitting, standing, lifting and bending. She would like to have her medications renewed. ALLERGIES: SULFA. CURRENT MEDICATIONS: Remicade 100 mg, Ambien 5 mg at bedtime, lisinopril 20 mg, ibuprofen 600 mg, Protonix 20 mg, tramadol 50 mg, and [place] 10/325 one p.o. every 4-6 hours p.r.n. PAIN CLINIC ASSESSMENT AND PQRS: 1. The patient does have a surgery on her right and left shoulders. She is not being treated for osteoarthritis. She does have a healing fibular head fracture. 2. Height 5 feet 4 inches, weight 230 pounds, BMI is 39.8. 3. Vital signs: Blood pressure 171/103, heart rate 82, respiratory rate 16, room air saturation is 94, and temperature 96.7. 4. Pain intensity /10. 5. Fall history: The patient has not fallen in the last 3 months. 6. Blood thinner. The patient is not on a blood thinning medication. 7. Hypertension. The patient is being treated for hypertension. 8. Opioids, low risk. 9. Recreational drug use. The patient receives medication from the Pain Clinic. 10. Tobacco: The patient denies [place] [address] PAIN MANAGEMENT CONSULTATION Name: KIKI DUNAWAY Raul Room: [facility]#: [id number] Admission: 01/09/20 Attend Phys: Dayna Naidu MD Discharge: Date of : 65 Report #: [id number] 11. Alcohol: The patient denies frequent use of alcoholic beverages. PHYSICAL EXAMINATION: GENERAL: The patient is a well-developed, well-nourished, somewhat obese white female, appears her stated age. She is alert and oriented x 3. Her affect is appropriate. Speech is fluent. HEENT: Normocephalic, atraumatic. Extraocular eye muscles intact. NECK: Without adenopathy or JVD. EXTREMITIES: Upper extremity muscle strength judged to be 5-/5 for the major muscle groups in the upper extremity. The patient does have some discomfort in the area of her rotator cuffs. She notes some decreased range of motion in her upper extremities. Lower extremity muscle strength judged to be 5-/5 for the major muscle groups in the lower extremity. The patient has some pain and discomfort in the left knee with complaint of zjhj-tf-drpf discomfort. MUSCULOSKELETAL: The patient without significant scoliosis, kyphosis or lordosis. The patient has pain in the left knee, which is the most problematic area. IMPRESSION: 1. History of greater trochanteric bursitis. 2. Left knee pain status post left knee injection with some improvement. 3. Fibromyalgia. 4. Fracture of the fibular head, continues to heal. 5. History of bowel resection secondary to Crohn's disease. 6. Right and left rotator cuff repairs or pain. 7. Pain secondary to left and right shoulder area as well as the knee, treated with a complex medical management using opioids. The patient is unable to take nonsteroidal anti-inflammatory medications given that she has Crohn's disease. RECOMMENDATIONS: We discussed treatment options with the patient. At this juncture, we will continue with her medications. She is aware that opioid medications can become less effective as time goes on because of development of tolerance. She is not showing signs of addiction. She is unable to take nonsteroidal anti-inflammatory medications because of her Crohn's disease. A script for her medications have been provided. She will continue with tramadol 50 mg one p.o. every 4-6 hours p.r.n. The patient will also continue with hydrocodone 10/325 one p.o. t.i.d. A script for her medications have been provided. We will talk with her in the future. By: [id number]. Robert Naidu MD /nt
== END ==
LOC: M.PC 04:59
DX: S82.4 Fracture of shaft of fibula (principal); M54.5 Low back pain; F11.20 Opioid dependence, uncomplicated; M79.7 Fibromyalgia; Z87.39 Personal history of other diseases of the musculoskeletal system and connective tissue; Z87.19 Personal history of other diseases of the digestive system; Z87.81 Personal history of (healed) traumatic fracture; Z88.2 Allergy status to sulfonamides; Z79.899 Other long term (current) drug therapy; X58.XXXD Exposure to other specified factors, subsequent encounter

== ENCOUNTER → 2020-02-06 | Outpatient (CLI) | payer OTHER ==
--- NOTE | 2020-02-18 08:21 | PAINCON ---
[address] [address] PAIN MANAGEMENT CONSULTATION Name: KIKI DUNAWAY Room: [facility]#: [id number] Admission: 02/06/20 Attend Phys: Dayna Naidu MD Discharge: Date of : 65 Report #: [id number] THIS REPORT FOR: //name// cc: Donn Beckett MD, Alan J. MD ~ THIS REPORT FOR: //name// CC: Donn Naidu DATE OF SERVICE: 02/06/2020 CHIEF COMPLAINT: Continued pain from iweg-nx-rmva pain in my knees. HISTORY: The patient is a 54-year-old female. She is followed in the pain clinic. As you may recall, she suffers from bopk-tl-esti pain in her knees. She has continued to have pain, which is problematic. At this juncture, she is trying to hold out as long as possible before knee replacement. She has returned today for renewal of her medications. She rates her pain as 5/10. She also has some pain in the low back area. She has had knee injections in the past. She is looking forward to undergoing additional injections in the future. She would like to have her medications renewed. She feels that the hydrocodone as well as tramadol do provide some benefit. Walking, sitting, standing, climbing stairs, bending and lifting can be problematic. ALLERGIES: SULFA. CURRENT MEDICATIONS: Remicade 100 mg, Ambien 5 mg at bedtime, lisinopril 20 mg, ibuprofen 600 mg, Protonix 20 mg, tramadol 50 mg, [place] 10/325 one p.o. q. 4-6 hours p.r.n. PAIN CLINIC ASSESSMENT AND PQRS: 1. The patient does have some discomfort and has had surgery on her right and left shoulders. She is not being treated for rheumatoid arthritis. Does have a healing fibular head fracture. 2. Height 5 feet 4 inches, weight 233 pounds, BMI is 40.0. 3. Vital Signs: Blood pressure 141/111. Second Blood pressure 126/86, heart rate 84, respiratory rate 16, room air saturation is 96%, temperature 97.4. 4. Pain intensity 5/10. 5. Fall history: The patient has not fallen in the last 3 months. 6. Blood thinner. The patient is not on a blood thinning medication. 7. Hypertension. The patient is being treated for hypertension. 8. Opioids, low for opioid use. 9. Recreational drug use. The patient denies. 10. Tobacco: The patient [place] [address] PAIN MANAGEMENT CONSULTATION Name: KIKI DUNAWAY Room: [facility]#: [id number] Admission: 02/06/20 Attend Phys: Dayna Naidu MD Discharge: Date of : 65 Report #: [id number] 11. Alcohol. The patient denies frequent use of alcoholic beverages. PHYSICAL EXAMINATION: GENERAL: The patient is alert and oriented x 3. Her affect is appropriate. Speech is fluent. HEENT: Normocephalic, atraumatic. Extraocular eye muscles intact. Sclerae nonicteric. Mucous membranes are moist. The patient has some evidence of alopecia in the forehead area. NECK: Without adenopathy or JVD. EXTREMITIES: Upper extremity muscle strength judged to be 5-/5 for the major muscle groups in the upper extremity. The patient has some pain and discomfort in the rotator cuff areas. Has pain and discomfort in the lower extremities and in the knees bilaterally. ABDOMEN: Protuberant. Bowel sounds present. MUSCULOSKELETAL: The patient without significant scoliosis, kyphosis or lordosis. Has pain in the knees bilaterally secondary to vsyp-ir-cxrx discomfort. IMPRESSION: 1. Rkri-it-rxvj pain. 2. History of greater trochanteric bursitis. 3. Fibromyalgia. 4. Fracture of the fibular head, which is healing. 5. History of bowel resection secondary to Crohn's disease. 6. Right and left rotator cuff pain. 7. Pain secondary to the above been treated with complex medication regimen, using opioids. The patient is unable to take nonsteroidal anti-inflammatory medications because of her Crohn's. RECOMMENDATIONS: We discussed treatment options with the patient. Risks and benefits of the procedure were discussed. The risk and benefits of opioid use have been discussed. They include but are not limited to, worsening of pain because of development of tolerance. The patient is not showing a signs of addiction. She has taken her medication as prescribed. She keeps her medication in a guarded area. She does suffer from hifz-ra-enla pain. Her physicians feels that she should wait until later in life to undergo knee replacements. She feels that the medication is helpful. Still has pain and discomfort. Rates it as a 5/10 today. We will continue with her medications. A script for tramadol 50 mg one p.o. q. 4-6 hours has been provided. The patient will also continue with hydrocodone 10/325 one p.o. q. 4-6 hours. The patient will call us if she has any problems. She will continue with Ambien 5 mg at bedtime. The patient will also continue with tramadol p.r.n. to help with pain control. [facility] [address] [place] [address] PAIN MANAGEMENT CONSULTATION Name: KIKI DUNAWAY Room: [facility]#: [id number] Admission: 02/06/20 Attend Phys: Dayna Naidu MD Discharge: Date of : 65 Report #: [id number] We would like to thank you for letting us participate in her care. We hope she continues to improve. <ELECTRONICALLY SIGNED> By: Dayna Naidu MD 02/18/20 0821 [id number]. Robert Naidu MD /PMT
== END ==
LOC: M.PC 01:50
DX: M25.561 Pain in right knee (principal); M25.562 Pain in left knee; M79.7 Fibromyalgia; Z87.39 Personal history of other diseases of the musculoskeletal system and connective tissue; M75.101 Unspecified rotator cuff tear or rupture of right shoulder, not specified as traumatic; M75.102 Unspecified rotator cuff tear or rupture of left shoulder, not specified as traumatic; G89.4 Chronic pain syndrome; F11.20 Opioid dependence, uncomplicated; S82.4 Fracture of shaft of fibula; X58.XXXD Exposure to other specified factors, subsequent encounter; Z79.899 Other long term (current) drug therapy

== ENCOUNTER → 2020-03-05 | Outpatient (CLI) | payer OTHER ==
--- NOTE | ~2020-03-05 | PAINCON ---
[address] [address] PAIN MANAGEMENT CONSULTATION Name: EMELYNKIKI A Room: [facility]#: [id number] Admission: 03/05/20 Attend Phys: Dayna Naidu MD Discharge: Date of : 65 Report #: [id number] THIS REPORT FOR: //name// cc: Donn Beckett MD, Alan J. MD ~ THIS REPORT FOR: //name// CC: Donn Naidu DATE OF SERVICE: 03/05/2020 PRIMARY CARE PHYSICIAN: Donn Beckett MD CHIEF COMPLAINT: Continued fqzb-ix-bkpm pain in the knees. HISTORY: The patient is a 55-year-old female who has been followed in the pain clinic because of chronic pain. She suffers from oinu-qb-asgj pain involving her knee. She continues to find that her pain is problematic. Use of opioid medications have been helpful. She has returned today for renew of her medication. She has not had any problems with the medication. She is able to think clearly. She also has some low back pain as well as pain in her neck and shoulders. Things have not changed significantly since the last visit. She is working a little more. Rates her pain as a 4/10. Pain is exacerbated with walking, sitting, standing, climbing stairs, and other activities of daily living. She does use heat to help with the pain. ALLERGIES: SULFA. CURRENT MEDICATIONS: Remicade 100 mg, Ambien 5 mg at bedtime, lisinopril 20 mg, ibuprofen 600 mg, Protonix 20 mg, tramadol 50 mg, [place] 10/325 one p.o. q 4-6 hours p.r.n. PAIN CLINIC ASSESSMENT AND PQRS: 1. The patient does have some discomfort and has had surgery on her right and left shoulders. She is not being treated for rheumatoid arthritis. She does have djmj-wp-erho pain involving her knees. She does have a healing fibular head fracture. 2. Height 5 feet 4 inches, weight 233 pounds, BMI is 40. 3. Vital signs: Blood pressure 164/88, heart rate 71, respiratory rate 16, room air saturation 97%. 4. Pain intensity is 4/10. 5. Fall history: The patient has not fallen in the last 3 months. 6. Blood thinner. The patient is not on a blood thinning medication. 7. Hypertension. The patient is being [place] [address] PAIN MANAGEMENT CONSULTATION Name: KIKI DUNAWAY Raul Room: [facility]#: [id number] Admission: 03/05/20 Attend Phys: Dayna Naidu MD Discharge: Date of : 65 Report #: [id number] 8. Opioid use for greater than 6 weeks. 9. Recreational drug use. The patient denies. 10. Tobacco: The patient denies. 11. Alcohol. The patient denies frequent use of alcoholic beverages. PHYSICAL EXAMINATION: GENERAL: The patient is a well-developed, well-nourished, somewhat obese white female, appears her stated age. She is alert and oriented x 3. Her affect is appropriate. Speech is fluent. HEENT: Normocephalic, atraumatic. Extraocular eye muscles intact. Sclerae nonicteric. The patient has some evidence of alopecia in the forehead area. MUSCULOSKELETAL: Upper extremity muscle strength judged to be 5-/5 for the major muscle groups in the upper extremity. The patient has pain and discomfort in the rotator cuff areas. Notes pain and discomfort in the lower extremities and in the knees bilaterally because of jmcm-md-aglm. ABDOMEN: Protuberant. Bowel sounds present. MUSCULOSKELETAL: The patient without significant scoliosis, kyphosis or lordosis. The patient has pain in her knees. IMPRESSION: 1. Loux-ep-nitr pain in the knees bilaterally. 2. History of greater trochanteric bursitis. 3. Fibromyalgia. 4. Fracture of the fibular head, which is healing. 5. History of bowel resection secondary to Crohn's disease. 6. Right and left rotator cuff pain. 7. Pain secondary to chronic pain treated with opioids given that the patient is not able to take nonsteroidal anti-inflammatory medications because of her Crohn's disease. RECOMMENDATIONS: We discussed treatment options with the patient. We will continue with her medications. The risks and benefits of use of opioids have been discussed. The patient is aware that these medications can be problematic in certain people. She has taken the medication as prescribed. She is not showing signs of addiction. She is aware that tolerance may develop. She keeps her medications in a guarded area. Does have mgqk-wr-dtvv pain and pain involving her knees and is unable to take nonsteroidal anti-inflammatory medications because of her Crohn's disease. A script for her medications have been rewritten. She will continue with hydrocodone 10 mg 1 p.o. t.i.d. She will also use tramadol q. 4 hours p.r.n. for chronic pain. The patient takes Ambien 30 mg at bedtime. [place] [address] [place] [address] PAIN MANAGEMENT CONSULTATION Name: KIKI DUNAWAY Room: [facility]#: [id number] Admission: 03/05/20 Attend Phys: Dayna Naidu MD Discharge: Date of : 65 Report #: [id number] We would like to thank you for letting us participate in her care. We hope she continues to improve. By: [id number]. Robert Naidu MD /PMT
== END ==
LOC: M.PC 03:57
PROVIDERS: ATTEND Anesthesiology Pain Medicine
DX: S82.409D Unspecified fracture of shaft of unspecified fibula, subsequent encounter for closed fracture with routine healing (principal); M25.561 Pain in right knee; M25.562 Pain in left knee; M79.7 Fibromyalgia; K50.00 Crohn's disease of small intestine without complications; M75.101 Unspecified rotator cuff tear or rupture of right shoulder, not specified as traumatic; M75.102 Unspecified rotator cuff tear or rupture of left shoulder, not specified as traumatic; I10 Essential (primary) hypertension; Z88.2 Allergy status to sulfonamides; Z90.49 Acquired absence of other specified parts of digestive tract; Z79.899 Other long term (current) drug therapy; X58.XXXD Exposure to other specified factors, subsequent encounter

== ENCOUNTER → 2020-04-30 | Outpatient (CLI) | payer OTHER ==
--- NOTE | 2020-05-07 23:57 | PAINCON ---
[address] [address] PAIN MANAGEMENT CONSULTATION Name: EMELYNKIKI A Room: [facility]#: [id number] Admission: 04/30/20 Attend Phys: Dayna Naidu MD Discharge: Date of : 65 Report #: [id number] THIS REPORT FOR: //name// cc: Donn Beckett MD, Alan J. MD ~ THIS REPORT FOR: //name// CC: Donn Naidu DATE OF SERVICE: 04/30/2020 CHIEF COMPLAINT: Bilateral knee pain with low back, neck and shoulder pain as well. HISTORY: The patient is a 55-year-old female who has been followed in the pain clinic because of chronic pain. She suffers from wduu-lz-fnot pain on her knees. She continues to find that her medications of hydrocodone are helpful. She uses tramadol. It can be beneficial as well. She has returned today for renewal of her medications. She notes that activities are problematic. Walking, sitting, standing, climbing stairs can be problematic. She notes a sharp, shooting, aching, throbbing discomfort. She does have Crohn's disease, which also increases her pain and discomfort. She rates it as a 4/10 at this juncture. ALLERGIES: SULFA. CURRENT MEDICATIONS: Remicade 100 mg, Ambien 5 mg at bedtime, lisinopril 20 mg, ibuprofen 600 mg, Protonix 20 mg, tramadol 50 mg, and [place] 10/325 one p.o. q. 4-6 hours p.r.n. PAIN CLINIC ASSESSMENT AND PQRS: 1. The patient does have some discomfort in her shoulder and in her knees. She is not being treated for rheumatoid arthritis. The patient has zkrm-ir-efsa involvement in her knees. She does have a healing fibular head fracture. 2. Height 5 feet 4 inches, weight 234 pounds, BMI is 40. 3. Vital Signs: Blood pressure 158/100, heart rate 79, respiratory rate 15, room air saturation 92%, temperature 98.3. 4. Pain score 4/10. 5. Fall history: The patient has not fallen in the last 3 months. 6. Blood thinner. The patient is not on a blood thinning medication. 7. Hypertension. The patient is being treated for hypertension. 8. Opioid use for greater than 6 weeks. The patient receives medication from the pain clinic. 9. Recreational [place] [address] PAIN MANAGEMENT CONSULTATION Name: KIKI DUNAWAY Raul Room: [facility]#: [id number] Admission: 04/30/20 Attend Phys: Dayna Naidu MD Discharge: Date of : 65 Report #: [id number] 10. Tobacco: The patient denies. 11. Alcohol. The patient denies frequent use of alcoholic beverages. PHYSICAL EXAMINATION: GENERAL: The patient is a well-developed, well-nourished white female. She is obese. She appears her stated age. She is alert and oriented x 3. Her affect is appropriate. Speech is fluent. HEENT: Normocephalic, atraumatic. Extraocular eye muscles intact. Sclerae nonicteric. Mucous membranes are moist. The patient has some alopecia in the frontal area. MUSCULOSKELETAL: Upper extremity muscle strength judged to be 5-/5 for the major muscle groups in the upper extremity. The patient has pain and discomfort in the area of the rotator cuff. She has pain in the low back and lower extremities. The knees are yvai-ek-epaj. The patient without significant scoliosis, kyphosis or lordosis. The patient does have some pain in her knees. ABDOMEN: Protuberant. Bowel sounds present. IMPRESSION: 1. Ifwr-uw-mmcm pain in the knees bilaterally. 2. History of greater trochanter bursitis. 3. Fibromyalgia. 4. Fracture of the fibular head, which is healing. 5. History of Crohn's disease with history of bowel resection. 6. Right and left rotator cuff pain. 7. Pain secondary to chronic pain treated with opioids. The patient is unable to take nonsteroidal anti-inflammatory medications because of her Crohn's disease. RECOMMENDATIONS: We discussed treatment options with the patient. Risks and benefits of the medications have been discussed. The patient is aware that opioid medications can become less effective as time goes on because of development of tolerance. She would like to continue with the medication, it enables her to engage in activities, she would not be able to without its use. She is also requesting continue use of Zofran to help with sleep at night. A script for the Ambien 5 mg 1 p.o. at bedtime as well as hydrocodone 5/325 one p.o. b.i.d. have been provided. We would like to thank you for letting us participate in her care. We hope she continues to improve. <ELECTRONICALLY SIGNED> By: Dayna Naidu MD 05/07/20 [id number] [id number] [id number]. Robert Naidu MD /nt
== END ==
LOC: M.PC 03:56
PROVIDERS: ATTEND Anesthesiology Pain Medicine
DX: S82.409D Unspecified fracture of shaft of unspecified fibula, subsequent encounter for closed fracture with routine healing (principal); M25.561 Pain in right knee; M25.562 Pain in left knee; M54.5 Low back pain; M54.2 Cervicalgia; M79.18 Myalgia, other site; M25.511 Pain in right shoulder; M25.512 Pain in left shoulder; G89.29 Other chronic pain; Z87.39 Personal history of other diseases of the musculoskeletal system and connective tissue; Z88.2 Allergy status to sulfonamides; Z79.899 Other long term (current) drug therapy; X58.XXXD Exposure to other specified factors, subsequent encounter

== ENCOUNTER 2020-05-30 11:50 | Inpatient (IN) | payer OTHER ==
[~2020-05-30] VITALS: Ht 162.6 cm; Wt 118.8 kg
[2020-05-30 12:02] VITALS: BP 162/94
[2020-05-30] MEDS ORDERED: NORCO 10-325 T1 EAC1 PO (12:05)
[2020-05-30 12:33] LABS: ABSOLUTE BASOPHILS 0.1 thou/uL (0.0-0.2); ABSOLUTE EOSINOPHILS 0.1 thou/uL (0.0-0.7); ABSOLUTE LYMPHOCYTES 1.4 thou/uL (0.8-5.3); ABSOLUTE MONOCYTES 1.9 thou/uL (0.0-1.2); ABSOLUTE NEUTROPHILS 16.3 thou/uL (1.6-8.1); BASOPHILS 0.3 %; EOSINOPHILS 0.3 %; HEMATOCRIT 38.1 % (37.0-47.0); HEMOGLOBIN 12.3 gm/dL (12.0-15.0); MCH 25.7 pg (26.0-34.0); MCHC 32.2 g/dL (28.0-37.0); MCV 79.9 fL (80.0-100.0); MONOCYTES 9.5 %; MPV 8.4 fl. (7.2-11.1); NUCLEATED RBCS 0 /100WBC; PLATELET COUNT* 251 thou/uL (150-400); POLYS 82.9 %; RBC 4.78 mil/uL (4.20-5.00); RDW-CV 18.3 % (10.5-14.5); WBC 19.7 thou/uL (4.0-11.0)
[2020-05-30 12:36] LABS: CALCIUM 9.4 mg/dL (8.5-10.1); POTASSIUM 3.7 mmol/L (3.5-5.1)
[2020-05-30 12:41] LABS: ALBUMIN 3.3 g/dL (3.4-5.0); TOTAL BILIRUBIN 1.4 mg/dL (<0.1-1.0)
[2020-05-30 12:58] LABS: URINE BILIRUBIN NEGATIVE (Negative); URINE BLOOD 2+ (Negative); URINE CLARITY CLEAR; URINE COLOR YELLOW; URINE GLUCOSE-RANDOM NEGATIVE (Negative); URINE KETONES TRACE (Negative); URINE NITRITE-REFLEX NEGATIVE (Negative); URINE PROTEIN TRACE (Negative); URINE SPECIFIC GRAVITY <= 1.005 (1.005-1.030); URINE UROBILINOGEN 0.2 E.U./dl (0.2-1.0)
[2020-05-30 12:59] LABS: URINE LEUKOCYTES-REFLEX 2+ (Negative)
[2020-05-30 13:02] LABS: SQUAMOUS 0-3 Few /LPF (0-3); URINE WBC-REFLEX >25 Many /HPF (0-5); WBC CLUMPS Few (None Seen)
[2020-05-30 13:04] LABS: CASTS None Seen /LPF (None Seen); MUCUS None Seen strn/LPF (None Seen); URINE RBC 0-2 Rare /HPF (0-2)
[2020-05-30 13:05] LABS: CRYSTALS None Seen /LPF (None Seen)
[2020-05-30 15:40] VITALS: BP 119/65
[2020-05-30 17:50] VITALS: BP 141/62
[2020-05-30 20:00] VITALS: BP 136/60
[2020-05-31] VITALS (34 sets, daily range): BP systolic 84–133; BP diastolic 42–82
[2020-05-31 00:55] LABS: BE -0.7 mmol/L (-2 to +3); PCO2 49.5 mmHg (35.0-45.0); PO2 92.7 mmHg (75.0-100.0); pH 7.333 (7.340-7.450)
[2020-05-31 01:22] LABS: HEMATOCRIT 33.8 % (37.0-47.0); HEMOGLOBIN 10.7 gm/dL (12.0-15.0); MCH 25.5 pg (26.0-34.0); MCHC 31.7 g/dL (28.0-37.0); MCV 80.5 fL (80.0-100.0); MPV 8.6 fl. (7.2-11.1); NUCLEATED RBCS 0 /100WBC; PLATELET COUNT* 245 thou/uL (150-400); RDW-CV 18.2 % (10.5-14.5); WBC 16.3 thou/uL (4.0-11.0)
[2020-05-31 01:25] LABS: CALCIUM 8.2 mg/dL (8.5-10.1); CREATININE 1.3 mg/dL (0.6-1.3); POTASSIUM 3.7 mmol/L (3.5-5.1)
[2020-05-31 01:40] LABS: ALBUMIN 2.7 g/dL (3.4-5.0); TOTAL BILIRUBIN 0.8 mg/dL (<0.1-1.0)
[2020-05-31 03:20] LABS: ABSOLUTE LYMPHOCYTES 0.7 thou/uL (0.8-5.3); ABSOLUTE MONOCYTES 0.2 thou/uL (0.0-1.2); ABSOLUTE NEUTROPHILS 15.5 thou/uL (1.6-8.1); PLATELET ESTIMATE ADEQUATE
[2020-05-31 03:21] LABS: ANISOCYTOSIS 1+; CLUMPED PLTS OCCASIONAL
[2020-06-01] VITALS: BP 101/77
[2020-06-01 04:02] VITALS: BP 166/70
[2020-06-01 07:30] VITALS: BP 122/66
--- NOTE | 2020-06-01 09:54 | EKG ---
[place] [address] ELECTROCARDIOGRAM REPORT Name: KIKI DUNAWAY Room: [address] ADM IN M.R.#: [id number] Admission: 05/30/20 Attend Phys: Huey Odom, Discharge: Date of : 65 Date of Service: 05/31/20 0033 Report #: [id number] THIS REPORT FOR: //name// [facility] Test Date: 2020-05-31 Test Time: 00:33:56 Pat Name: KIKI DUNAWAY Department: Room: [address] Gender: F Housekeeping Director: J[place] : 1965 Requested By: Huey Odom Order Number: [id number] Naty MD: Shashi Souza Measurements Intervals [place] Rate: 136 P: 9 [place]: 143 QRS: -52 QRSD: 81 T: -5 QT: 282 QTc: 425 Interpretive Statements Sinus tachycardia Inferior infarct, old Anterior infarct, old No previous ECG available for comparison Electronically Signed On 06-01-2020 9:54:32 CDT by Shashi Souza [email or web address] <ELECTRONICALLY SIGNED> By: Shashi Souza MD, [facility] 06/01/20 0954 0033 0033 Shashi Souza MD, [facility] /EPI
[2020-06-01 10:06] LABS: ABSOLUTE BASOPHILS 0.1 thou/uL (0.0-0.2); ABSOLUTE LYMPHOCYTES 1.2 thou/uL (0.8-5.3); ABSOLUTE MONOCYTES 0.6 thou/uL (0.0-1.2); ABSOLUTE NEUTROPHILS 7.1 thou/uL (1.6-8.1); BASOPHILS 0.6 %; HEMATOCRIT 31.9 % (37.0-47.0); HEMOGLOBIN 10.1 gm/dL (12.0-15.0); LYMPHOCYTES 13.1 %; MCH 25.6 pg (26.0-34.0); MCHC 31.6 g/dL (28.0-37.0); MONOCYTES 6.8 %; NUCLEATED RBCS 0 /100WBC; PLATELET COUNT* 175 thou/uL (150-400); POLYS 79.5 %; RBC 3.93 mil/uL (4.20-5.00); RDW-CV 18.5 % (10.5-14.5); WBC 8.9 thou/uL (4.0-11.0)
[2020-06-01 10:16] LABS: CALCIUM 8.3 mg/dL (8.5-10.1); CREATININE 1.1 mg/dL (0.6-1.3); POTASSIUM 3.4 mmol/L (3.5-5.1)
[2020-06-01 10:18] LABS: ALBUMIN 2.3 g/dL (3.4-5.0); TOTAL BILIRUBIN 0.3 mg/dL (<0.1-1.0); TOTAL PROTEIN 6.6 g/dL (6.4-8.2)
[2020-06-01 11:30] VITALS: BP 162/93
[2020-06-01 16:00] VITALS: BP 156/81
[2020-06-01 20:00] VITALS: BP 188/64
[2020-06-02] VITALS: BP 142/80
[2020-06-02 04:00] VITALS: BP 147/75
[2020-06-02 05:35] LABS: ABSOLUTE EOSINOPHILS 0.1 thou/uL (0.0-0.7); ABSOLUTE LYMPHOCYTES 1.2 thou/uL (0.8-5.3); ABSOLUTE MONOCYTES 0.8 thou/uL (0.0-1.2); ABSOLUTE NEUTROPHILS 4.9 thou/uL (1.6-8.1); BASOPHILS 0.3 %; EOSINOPHILS 0.8 %; HEMATOCRIT 29.4 % (37.0-47.0); HEMOGLOBIN 9.5 gm/dL (12.0-15.0); LYMPHOCYTES 16.9 %; MCH 25.7 pg (26.0-34.0); MCHC 32.3 g/dL (28.0-37.0); MCV 79.7 fL (80.0-100.0); MONOCYTES 11.6 %; MPV 8.3 fl. (7.2-11.1); NUCLEATED RBCS 0 /100WBC; PLATELET COUNT* 161 thou/uL (150-400); POLYS 70.4 %; RBC 3.68 mil/uL (4.20-5.00); RDW-CV 18.8 % (10.5-14.5)
[2020-06-02 05:53] LABS: ALBUMIN 2.2 g/dL (3.4-5.0); CALCIUM 8.4 mg/dL (8.5-10.1); CREATININE 0.9 mg/dL (0.6-1.3); POTASSIUM 3.3 mmol/L (3.5-5.1); PREALBUMIN 10.6 mg/dL (18.0-35.7); TOTAL BILIRUBIN 0.3 mg/dL (<0.1-1.0); TOTAL PROTEIN 6.5 g/dL (6.4-8.2)
[2020-06-02 08:00] VITALS: BP 157/83
[2020-06-02 12:00] VITALS: BP 121/61
[2020-06-02 16:00] VITALS: BP 144/75
[2020-06-02 20:00] VITALS: BP 140/72
[2020-06-03] VITALS: BP 142/67
[2020-06-03 04:00] VITALS: BP 166/89
[2020-06-03 07:16] LABS: BASOPHILS 0.5 %; MCV 79.3 fL (80.0-100.0)
[2020-06-03 07:22] LABS: ABSOLUTE EOSINOPHILS 0.1 thou/uL (0.0-0.7); ABSOLUTE LYMPHOCYTES 1.7 thou/uL (0.8-5.3); ABSOLUTE MONOCYTES 0.6 thou/uL (0.0-1.2); EOSINOPHILS 1.9 %; HEMATOCRIT 27.7 % (37.0-47.0); HEMOGLOBIN 9.1 gm/dL (12.0-15.0); LYMPHOCYTES 26.4 %; MCH 26.1 pg (26.0-34.0); MCHC 32.9 g/dL (28.0-37.0); MONOCYTES 9.9 %; MPV 8.9 fl. (7.2-11.1); NUCLEATED RBCS 0 /100WBC; PLATELET COUNT* 171 thou/uL (150-400); POLYS 61.3 %; RBC 3.49 mil/uL (4.20-5.00); RDW-CV 18.6 % (10.5-14.5); WBC 6.5 thou/uL (4.0-11.0)
[2020-06-03 07:29] LABS: ALBUMIN 2.1 g/dL (3.4-5.0); CREATININE 0.8 mg/dL (0.6-1.3); TOTAL BILIRUBIN 0.4 mg/dL (<0.1-1.0); TOTAL PROTEIN 6.4 g/dL (6.4-8.2)
[2020-06-03 07:35] LABS: POTASSIUM 2.9 mmol/L (3.5-5.1)
[2020-06-03 07:47] LABS: PREALBUMIN 10.2 mg/dL (18.0-35.7)
[2020-06-03 08:00] VITALS: BP 155/74
[2020-06-03] MEDS ORDERED: CEFUROXIME500 MG PO (11:13)
[2020-06-03 12:00] VITALS: BP 155/74
[2020-06-03 12:24] VITALS: BP 171/96
[2020-06-03 15:09] LABS: CALCIUM 8.6 mg/dL (8.5-10.1); CREATININE 0.8 mg/dL (0.6-1.3)
[2020-06-03 15:17] LABS: POTASSIUM 2.8 mmol/L (3.5-5.1)
[2020-06-04] MEDS ORDERED: TRAMADOL 50 MG50 MG PO (14:32)
[2020-06-04] MEDS ORDERED: NORCO 10-325 T1 EAC1 PO (14:32)
== END 2020-06-03 18:00 | disposition home or self-care (01) | DRG 871 ==
LOC: M.ERS 11:50 → M.ICU 13:49 → M.3W 13:49 → M.2W 13:49 → M.TBA-ER 13:49 → M.3W 15:50 → M.ICU 05-31 02:17 → M.2W 05-31 18:03
PROVIDERS: Family Medicine; ADMIT Internal Medicine; ATTEND Internal Medicine
DX: A41.51 Sepsis due to Escherichia coli [E. coli] (principal); J96.21 Acute and chronic respiratory failure with hypoxia; N12 Tubulo-interstitial nephritis, not specified as acute or chronic; E66.2 Morbid (severe) obesity with alveolar hypoventilation; G93.40 Encephalopathy, unspecified; Z68.41 Body mass index [BMI] 40.0-44.9, adult; E27.8 Other specified disorders of adrenal gland; B96.20 Unspecified Escherichia coli [E. coli] as the cause of diseases classified elsewhere; Z20.828 Contact with and (suspected) exposure to other viral communicable diseases; Z90.49 Acquired absence of other specified parts of digestive tract; Z79.899 Other long term (current) drug therapy; Z88.1 Allergy status to other antibiotic agents; Z88.2 Allergy status to sulfonamides

== ENCOUNTER → 2020-06-25 | Outpatient (CLI) | payer OTHER ==
[~2020-06-25] MED LIST changes: +CEFUROXIME500 MG PO; +NORCO 10-325 T1 EAC1 PO
--- NOTE | ~2020-06-25 | PAINCON ---
[address] [address] PAIN MANAGEMENT CONSULTATION Name: KIKI DUNAWAY Raul Room: [facility]#: [id number] Admission: 06/25/20 Attend Phys: Dayna Naidu MD Discharge: Date of : 65 Report #: [id number] THIS REPORT FOR: //name// cc: ISIAH BOUCHER MD, CHADWICK MD ~ THIS REPORT FOR: //name// CC: ISIAH Naidu DATE OF SERVICE: 06/25/2020 CHIEF COMPLAINT: Bilateral knee pain. HISTORY: The patient is a 55-year-old female who has been followed in the pain clinic because of chronic pain involving her knees. She still suffers tkag-bg-bdbr involvement of her knees. She recently was hospitalized because of urinary tract infection. She does not remember her entire hospital stay. She did have a temperature of 104 degrees. She continues to have pain in the low back, neck, shoulders and knees. She rates it as a 7/10. She feels that her hydrocodone medication is helpful. She feels tramadol is beneficial. Activity is walking, sitting, standing, climbing stairs can all exacerbate her discomfort. She has used medications as well as heat to help to combat the discomfort. ALLERGIES: SULFA. CURRENT MEDICATIONS: Remicade 100 mg, Ambien 5 mg at bedtime, lisinopril 20 mg, ibuprofen 600 mg, Protonix 20 mg, tramadol 50 mg, [place] 10/325 one p.o. q. 4-6 hours p.r.n. PAIN CLINIC ASSESSMENT AND PQRS: 1. The patient has some discomfort in her shoulders and knees. She does have ffnz-ed-smmv involvement in her knees. She is contemplating, undergoing another Remicade treatment. Height 5 feet 4 inches, weight 230 pounds, BMI is 40. 2. Vital signs: Blood pressure 151/103, pulse 75, respiratory rate 16, room air saturation 98%. 3. Pain intensity 04/10. 4. Fall history: The patient has not fallen in the last 3 months. 5. Blood thinner. The patient is not on a blood thinning medication. 6. Hypertension. The patient is being treated for hypertension. 7. Opioids greater than 6 weeks. The patient receives medication from the pain clinic. 8. Risk assessment tool, low for opioid use. 9. Tobacco: The patient denies. 10. Alcohol. The patient denies frequent [place] [address] PAIN MANAGEMENT CONSULTATION Name: KIKI DUNAWAY Room: [facility]#: [id number] Admission: 06/25/20 Attend Phys: Dayna Naidu MD Discharge: Date of : 65 Report #: [id number] PHYSICAL EXAMINATION: GENERAL: The patient is a well-developed, well-nourished white female. Somewhat obese. Appears her stated age. She is alert and oriented x 3. Her affect is appropriate. Speech is fluent. HEENT: Normocephalic, atraumatic. Extraocular eye muscles intact. Sclerae nonicteric. Mucous membranes are moist. The patient has a facial covering in place. NECK: The patient complains of some pain and discomfort in her neck as well as her shoulders. Complains of pain and discomfort in the back area. She has lower extremities bilateral knee pain with zgrf-az-pvqr involvement. The patient without significant scoliosis, kyphosis or lordosis. ABDOMEN: Protuberant. HEART: Regular. LUNGS: Clear. IMPRESSION: 1. Nzct-zg-mabz pain in the knees bilaterally. 2. History of greater trochanteric bursitis. 3. Fibromyalgia. 4. Fracture of the fibular head in the past, healing. 5. History of Crohn's disease with history of bowel resection. 6. Right and left rotator cuff pain. 7. Pain secondary to chronic pain treated with opioids. The patient is unable to take nonsteroidal anti-inflammatory medication because of her Crohn's disease. RECOMMENDATIONS: We discussed treatment options with the patient. Risks and benefits of opioid medications were discussed. The patient is aware that they can become less effective as time goes on because of development of tolerance. The patient feels her medications are helpful and enable her to engage in activities of daily living, she will not be able to without their use. She feels that she is getting better as a result of the urinary tract infection. There is still parts of her hospital stay she does not recall. A script for her medications of hydrocodone 10/325 one p.o. t.i.d. have been written. The patient will also continue with tramadol 50 mg 1 p.o. t.i.d. as needed. The patient has been provided with Ambien 5 mg to take at bedtime. She will call us if she has any concerns. We would like to thank you for letting us participate in her care. We hope she continues to improve. By: [id number]. Robert Naidu MD /mykel
== END ==
LOC: M.PC 11:00
PROVIDERS: ATTEND Anesthesiology Pain Medicine
DX: S82.409D Unspecified fracture of shaft of unspecified fibula, subsequent encounter for closed fracture with routine healing (principal); M25.561 Pain in right knee; M25.562 Pain in left knee; Z88.2 Allergy status to sulfonamides; Z79.899 Other long term (current) drug therapy; X58.XXXD Exposure to other specified factors, subsequent encounter

== ENCOUNTER → 2020-09-17 | Outpatient (CLI) | payer OTHER | LOC: M.PC 11:40 | PROVIDERS: ATTEND Anesthesiology Pain Medicine | DX: M25.561 Pain in right knee (principal); M25.562 Pain in left knee; Z96.652 Presence of left artificial knee joint ==

== ENCOUNTER → 2020-11-26 | Outpatient (CLI) | payer OTHER | LOC: M.PC 10:00 | PROVIDERS: ATTEND Anesthesiology Pain Medicine | DX: M79.10 Myalgia, unspecified site (principal); M25.511 Pain in right shoulder; M25.512 Pain in left shoulder; M25.561 Pain in right knee; M25.562 Pain in left knee; Z87.39 Personal history of other diseases of the musculoskeletal system and connective tissue; Z87.19 Personal history of other diseases of the digestive system; Z87.81 Personal history of (healed) traumatic fracture; Z88.8 Allergy status to other drugs, medicaments and biological substances; Z79.899 Other long term (current) drug therapy ==

== ENCOUNTER → 2021-01-21 | Outpatient (CLI) | payer OTHER | LOC: M.PC 11:10 | PROVIDERS: ATTEND Anesthesiology Pain Medicine | DX: M25.562 Pain in left knee (principal); M25.561 Pain in right knee; M79.7 Fibromyalgia; S82.409D Unspecified fracture of shaft of unspecified fibula, subsequent encounter for closed fracture with routine healing; X58.XXXD Exposure to other specified factors, subsequent encounter; M25.512 Pain in left shoulder; M70.60 Trochanteric bursitis, unspecified hip; K50.90 Crohn's disease, unspecified, without complications; Z96.652 Presence of left artificial knee joint; Z98.890 Other specified postprocedural states ==

== ENCOUNTER → 2021-03-18 | Outpatient (CLI) | payer OTHER | LOC: M.PC 11:00 | PROVIDERS: ATTEND Anesthesiology Pain Medicine | DX: S82.409D Unspecified fracture of shaft of unspecified fibula, subsequent encounter for closed fracture with routine healing (principal); M25.561 Pain in right knee; M25.562 Pain in left knee; G89.29 Other chronic pain; M79.7 Fibromyalgia; Z79.899 Other long term (current) drug therapy; Z88.8 Allergy status to other drugs, medicaments and biological substances; X58.XXXD Exposure to other specified factors, subsequent encounter ==

== ENCOUNTER → 2021-05-13 | Outpatient (CLI) | payer OTHER | LOC: M.PC 11:00 | PROVIDERS: ATTEND Anesthesiology Pain Medicine | DX: M25.511 Pain in right shoulder (principal); M72.2 Plantar fascial fibromatosis; K50.90 Crohn's disease, unspecified, without complications; M79.7 Fibromyalgia; Z96.652 Presence of left artificial knee joint; Z79.899 Other long term (current) drug therapy; Z79.891 Long term (current) use of opiate analgesic ==

== ENCOUNTER → 2021-07-08 | Outpatient (CLI) | payer OTHER | LOC: M.PC 11:00 | PROVIDERS: ATTEND Anesthesiology Pain Medicine | DX: M72.2 Plantar fascial fibromatosis (principal); M79.7 Fibromyalgia; M25.562 Pain in left knee; Z96.652 Presence of left artificial knee joint ==

== ENCOUNTER → 2021-09-02 | Outpatient (CLI) | payer OTHER | LOC: M.PC 11:00 | PROVIDERS: ATTEND Anesthesiology Pain Medicine | DX: M72.2 Plantar fascial fibromatosis (principal); M25.562 Pain in left knee; M25.561 Pain in right knee; K50.90 Crohn's disease, unspecified, without complications; M75.101 Unspecified rotator cuff tear or rupture of right shoulder, not specified as traumatic; M79.7 Fibromyalgia; Z96.652 Presence of left artificial knee joint; Z79.899 Other long term (current) drug therapy; Z88.2 Allergy status to sulfonamides ==